=== PATIENT | male | born 1970 | race Caucasian/White ===

== ENCOUNTER 2016-09-11 17:59 | Emergency (ER) | payer MEDICARE, OTHER ==
[~2016-09-11] VITALS: Ht 167.6 cm; Wt 102.1 kg
[~2016-09-11 17:59] MED LIST: AMIT50TA3 PO; CITA40TA11 PO; QUET400T3 PO; TOPI-37 PO
--- NOTE | 2016-09-11 18:21 | NUR ---
CALLED [employer] FOR DUPLEX
--- NOTE | 2016-09-11 18:26 | NUR ---
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 AMBULATORY WITH STEADY GAIT. NO SWELLING OR REDNESS NOTED. NAD NOTED. RESP EVEN UNLABORED. MOVED FROM BED 17 TO BED 10 FOR PRIVACY FOR DOPPLER.
[2016-09-11 18:46] LABS: CALCIUM, SERUM 9.3 mg/dL (8.5-10.1); CREATININE 1.1 mg/dL (0.6-1.3); POTASSIUM 3.9 mmol/L (3.5-5.1)
[2016-09-11 18:50] LABS: BASOPHILS # (AUTO) 0.4 /CMM (0.0-0.2); EOSINOPHILS # (AUTO) 0.4 /CMM (0.0-0.7); EOSINOPHILS % (AUTO) 3.5 % (0.0-6.0); HEMATOCRIT 46 % (39-51); HEMOGLOBIN 15.2 g/dL (13.5-17.5); LYMPHOCYTES # (AUTO) 2.6 /CMM (0.8-4.8); MEAN CORPUSCULAR HEMOGLOBIN 29 PG (26.0-33.0); MEAN CORPUSCULAR HGB CONC 33 g/dl (31.0-36.0); MEAN CORPUSCULAR VOLUME 86 fL (80-96); MONOCYTES # (AUTO) 0.8 /CMM (0.1-1.30); MONOCYTES % (AUTO) 6.6 % (2.0-12.0); NEUTROPHILS # (AUTO) 8.1 /CMM (1.8-8.9); NEUTROPHILS % (AUTO) 65.9 % (43.0-81.0); PLATELET COUNT (AUTO) 196 /CMM (150-450); RED BLOOD CELL COUNT(AUTO) 5.29 MIL/uL (4.5-6.0); WHITE BLOOD COUNT (AUTO) 12.3 K/uL (4.3-11.0)
--- NOTE | 2016-09-11 19:38 | NUR ---
US TECH AT BEDSIDE
[2016-09-11 19:53] VITALS: BP 150/84
--- NOTE | 2016-09-11 19:53 | NUR ---
Patient discharged to home in stable condition. Written and verbal after care instructions given. Patient verbalizes understanding of instruction.
== END 2016-09-11 19:53 | disposition home or self-care (01) ==
LOC: ER 18:00
DX: M79.605 Pain in left leg (principal); F32.9 Major depressive disorder, single episode, unspecified; F41.9 Anxiety disorder, unspecified; F17.200 Nicotine dependence, unspecified, uncomplicated
CPT/HCPCS: 36415; 80048-TC; 82550-TC; 85025-TC; 93971-TC; A4606; Z7610

== ENCOUNTER 2017-10-09 12:19 | Emergency (ER) | payer MEDICARE, OTHER ==
[~2017-10-09] VITALS: Ht 167.6 cm; Wt 97.5 kg
[~2017-10-09 12:19] MED LIST changes: -TOPI-37 PO; +TOPI100T38 PO
--- NOTE | 2017-10-09 12:19 | NUR ---
AMBULATORY IN A STEADY GAIT TO ED BED 09, A/OX4 C/O CHEST PAIN RADIATES TO NECK AND EARS STARTED 2 HRS AGO.PT TOOK KLONOPIN 1 HR AGO BECAUSE HE THOUGHT IT WAS ANXIETY BUT NO RELIEF FROM KLONOPIN. PT STS PAIN IS WORSE WITH DEEP BREATH. GOWNED AND PLACED ON MONITOR. ALL NEEDS ARE ATTENDED, KEPT COMFORTABLE. PENDING ER MD NOLEN
--- NOTE | 2017-10-09 12:50 | NUR ---
NEW IV STARTED ON RIGHT HAND, 20G. BLOOD DRAWN AND SENT TO LAB.
[2017-10-09 12:52] LABS: BASOPHILS # (AUTO) 0.2 /CMM (0.0-0.2); BASOPHILS % (AUTO) 2.3 % (0.0-2.0); EOSINOPHILS % (AUTO) 3.5 % (0.0-6.0); HEMATOCRIT 44 % (39-51); LYMPHOCYTES # (AUTO) 1.9 /CMM (0.8-4.8); LYMPHOCYTES % (AUTO) 23.1 % (20.0-44.0); MEAN CORPUSCULAR HGB CONC 34 g/dl (31.0-36.0); MEAN CORPUSCULAR VOLUME 87 fL (80-96); MONOCYTES # (AUTO) 0.4 /CMM (0.1-1.30); NEUTROPHILS # (AUTO) 5.5 /CMM (1.8-8.9); NEUTROPHILS % (AUTO) 66.1 % (43.0-81.0); PLATELET COUNT (AUTO) 190 /CMM (150-450); RED BLOOD CELL COUNT(AUTO) 5.03 MIL/uL (4.5-6.0); WHITE BLOOD COUNT (AUTO) 8.3 K/uL (4.3-11.0)
[2017-10-09 13:01] LABS: CALCIUM, SERUM 9.2 mg/dL (8.5-10.1); CARBON DIOXIDE 26 mmol/L (21-32); CHLORIDE 106 mmol/L (98-107); GLUCOSE 144 mg/dL (74-106); POTASSIUM 3.8 mmol/L (3.5-5.1); SODIUM SERUM 141 mmol/L (136-145); UREA NITROGEN, BLOOD 14 mg/dL (7-18)
[2017-10-09 13:05] LABS: INR 0.89 (0.85-1.15)
[2017-10-09 13:09] LABS: TROPONIN I < 0.017 ng/mL (0.00-0.056)
[2017-10-09] MEDS ORDERED: HYDROMORPHONE INJ 2 MG/ML DISP.SYRIN ONE (13:45)
[2017-10-09] MEDS ORDERED: LORAZEPAM INJ 2 MG/ML VIAL ONE (13:45)
--- NOTE | 2017-10-09 13:49 | NUR ---
PATIENT MEDICATED PER MD ORDERS.
[2017-10-09] MEDS ORDERED: HYDROMORPHONE 1 MG/1 ML DISP.SYRIN IV ONE (14:00)
[2017-10-09] MEDS ORDERED: LORAZEPAM INJ 2 MG/ML VIAL IV ONE (14:00)
--- NOTE | 2017-10-09 16:25 | NUR ---
IV removed. Catheter intact and site benign. Pressure and 4x4 applied to site. No bleeding noted. Patient discharged to home in stable condition. Written and verbal after care instructions given. Patient verbalizes understanding of instruction.
[2017-10-09 16:39] VITALS: BP 122/71
== END 2017-10-09 16:25 | disposition home or self-care (01) ==
LOC: ER 12:28
DX: R07.89 Other chest pain (principal); F41.9 Anxiety disorder, unspecified; F32.9 Major depressive disorder, single episode, unspecified; F17.200 Nicotine dependence, unspecified, uncomplicated; F60.9 Personality disorder, unspecified
CPT/HCPCS: 36415; 71045; 80048; 84484 ×2; 85025; 85730; 93005; 96374; 96375; 99285; A4606; J1170; J2060; Z7610